=== PATIENT | female | born 1980 | race American Indian/Alaskan Native ===

== ENCOUNTER 2016-10-03 19:14 | Emergency (ER) | payer MEDICAID ==
[2016-10-03 19:34] VITALS: BP 132/76
[2016-10-03 20:48] LABS: Blood Urea Nitrogen 6 mg/dL (7-17); Calcium 9.1 mg/dL (8.4-10.2); Carbon Dioxide 25 mmol/L (22-30); Glucose 98 mg/dL (65-100)
[2016-10-03 20:49] LABS: Chloride 99.1 mmol/L (98-107); Potassium 3.5 mmol/L (3.6-5.0); Sodium 137 mmol/L (137-145)
[2016-10-03 20:52] LABS: Anion Gap 16 mmol/L
[2016-10-03 21:13] LABS: Red Blood Count TNR M/mm3 (3.65-5.03); White Blood Count TNR K/mm3 (4.5-11.0)
[2016-10-03 21:14] LABS: Hematocrit TNR % (30.3-42.9); Hemoglobin TNR gm/dl (10.1-14.3); Mean Corpuscular Volume TNR fl (79-97)
[2016-10-03 21:15] LABS: Mean Corpuscular HGB Conc TNR % (30-34); Mean Corpuscular Hemoglobin TNR pg (28-32); Mean Platelet Volume TNR fl (6-12); Platelet Count TNR K/mm3 (140-440); Red Cell Distribution Width TNR % (13.2-15.2)
[2016-10-03] MEDS ORDERED: DUONEB 0.5 MG-3 MG/3 ML SOLN IH ONE (21:48)
[2016-10-03] MEDS ORDERED: ZITHROMAX PO ONE (21:48)
[2016-10-03] MEDS ORDERED: DELTASONE PO ONE (21:48)
[2016-10-03] MEDS ORDERED: BENADRYL PO ONE (23:26)
[2016-10-03] MEDS ORDERED: MOTRIN PO ONE (23:26)
--- NOTE | 2016-10-04 00:09 | XRay Report ---
FINAL REPORT PROCEDURE: XR CHEST ROUTINE 2V TECHNIQUE: PA and lateral chest radiographs were obtained. CPT 03339 HISTORY: COPD exacerbation COMPARISON: No prior studies are available for comparison. FINDINGS: Heart: Normal. Mediastinum/Vessels: Normal. Lungs/Pleural space: Normal. Bony thorax: No acute osseous abnormality. Other: IMPRESSION: Normal examination.
--- NOTE | 2016-10-04 00:21 | Emergency Department Report ---
ED Female HPI - General Chief complaint: Skin Rash Stated complaint: VAGINAL RASH Time Seen by Provider: 10/03/16 21:50 Source: patient Mode of arrival: Ambulatory Limitations: No Limitations - History of Present Illness Initial comments: 35-year-old female past medical history COPD, smoker presents with complaint of 3-4 days of vaginal irritation. Also states she has been feeling slightly short of breath this week and coughing more than usual with productive cough greenish sputum. Denies any fever chills no nausea no vomiting no abdominal pain. Patient is awake alert and oriented 3 not in acute distress no audible stridor or dyspnea on exam. Her primary complaint is of external vaginal itching. MD Complaint: vaginal discharge Onset/Timin -: days(s) Location: labia Radiation: non-radiating Severity: moderate Quality: other Consistency: constant Improves with: none Worsens with: none Are you Now?: No (itching) Associated Symptoms: vaginal discharge - Related Data Previous Rx's Medication Instructions Recorded Last Taken Type Cyclobenzaprine [Flexeril] 10 mg PO TID PRN #15 tablet 04/27/16 Unknown Rx Ibuprofen [Motrin] 800 mg PO Q8HR PRN #15 tablet 04/27/16 Unknown Rx ALBUTEROL Inhaler [ProAir HFA 2 puff IH QID PRN #1 inhalation 10/04/16 Unknown Rx Inhaler] Azithromycin [Zithromax Z-ROMELIA] 250 mg PO QDAY #6 tablet 10/04/16 Unknown Rx Fluconazole [Diflucan TAB] 150 mg PO ONCE #1 tablet 10/04/16 Unknown Rx Hydrocortisone 1% [Hydrocortisone 1 applicatio TP TID PRN #1 tube 10/04/16 Unknown Rx 1% CREAM] predniSONE [Deltasone] 40 mg PO QDAY #10 tab 10/04/16 Unknown Rx Allergies Allergy/AdvReac Type Severity Reaction Status Date / Time No Known Allergies Allergy Verified 04/27/16 00:54 ED Review of Systems ROS: Stated complaint: VAGINAL RASH Other details as noted in HPI Constitutional: denies: chills, fever Eyes: denies: eye pain, eye discharge, vision change ENT: denies: ear pain, throat pain Respiratory: cough. denies: shortness of breath, wheezing Cardiovascular: denies: chest pain, palpitations Endocrine: no symptoms reported Gastrointestinal: denies: abdominal pain, nausea, diarrhea Genitourinary: as per HPI, discharge (thick whitish vaginal discharge vaginal irritation on labia). denies: urgency, dysuria Musculoskeletal: denies: back pain, joint swelling, arthralgia Skin: denies: rash, lesions Neurological: denies: headache, weakness, paresthesias Psychiatric: denies: anxiety, depression Hematological/Lymphatic: denies: easy bleeding, easy bruising ED Past Medical Hx - Past Medical History Hx COPD: Yes Additional medical history: anemia - Surgical History Additional Surgical History: ankle screws and plate - Social History Smoking Status: Current Every Day Smoker Substance Use Type: Alcohol, Marijuana - Medications Home Medications: Home Medications Medication Instructions Recorded Confirmed Last Taken Type Cyclobenzaprine [Flexeril] 10 mg PO TID PRN #15 tablet 04/27/16 Unknown Rx Ibuprofen [Motrin] 800 mg PO Q8HR PRN #15 tablet 04/27/16 Unknown Rx ALBUTEROL Inhaler [ProAir HFA 2 puff IH QID PRN #1 inhalation 10/04/16 Unknown Rx Inhaler] Azithromycin [Zithromax Z-ROMELIA] 250 mg PO QDAY #6 tablet 10/04/16 Unknown Rx Fluconazole [Diflucan TAB] 150 mg PO ONCE #1 tablet 10/04/16 Unknown Rx Hydrocortisone 1% [Hydrocortisone 1 applicatio TP TID PRN #1 tube 10/04/16 Unknown Rx 1% CREAM] predniSONE [Deltasone] 40 mg PO QDAY #10 tab 10/04/16 Unknown Rx ED Physical Exam - General Limitations: No Limitations General appearance: alert, in no apparent distress - Head Head exam: Present: atraumatic, normocephalic - Eye Eye exam: Present: normal appearance, PERRL, EOMI - ENT ENT exam: Present: mucous membranes moist - Neck Neck exam: Present: normal inspection - Respiratory Respiratory exam: Present: wheezes (slight wheezing lower lung chow). Absent : respiratory distress - Cardiovascular Cardiovascular Exam: Present: regular rate, normal rhythm. Absent: systolic murmur, diastolic murmur, rubs, gallop - GI/Abdominal GI/Abdominal exam: Present: soft, normal bowel sounds - External exam: Present: other (whitish vaginal discharge externally) Speculum exam: Present: vaginal discharge - Extremities Exam Extremities exam: Present: normal inspection, full ROM - Back Exam Back exam: Present: normal inspection - Neurological Exam Neurological exam: Present: alert, oriented X3 - Psychiatric Psychiatric exam: Present: normal affect, normal mood - Skin Skin exam: Present: warm, dry, intact, normal color. Absent: rash ED Course Vital Signs 10/03/16 10/03/16 10/03/16 19:28 22:26 22:38 Temperature 99 F Pulse Rate 107 H Pulse Rate [ 89 92 H Anterior Bilateral Throughout] Respiratory 18 Rate Respiratory 12 12 Rate [Anterior Bilateral Throughout] Blood Pressure 132/76 O2 Sat by Pulse 100 Oximetry ED Medical Decision Making - Lab Data Result diagrams: 10/03/16 20:18 10/03/16 20:18 - Medical Decision Making A/P: Vaginal candidiasis, mild COPD exacerbation 1-metronidazole and fluconazole for BV/vulvovaginal candidiasis 2-albuterol inhaler, prednisone 5 day course, azithromycin for mild COPD exacerbation. Patient fully ambulatory not in any acute respiratory distress oxygen saturation 98% before discharge. Patient states she feels considerably better only after 1 DuoNeb treatment. Chest x-ray within normal limits 3-patient denies any chest pain whatsoever. Stated that she just felt mild congestion. I advised patient on reducing her cigarette smoking 4-patient does not currently have primary medical doctor, I will refer patient to PCP 5- patient allowed me to do an external vaginal exam but stated that the itching was intensive did not want me doing an internal exam. I could see thick , she is white like discharge and labia no other lesions. I will treat patient empirically based on the symptoms and external exam. I was chaperoned by respiratory therapist Abeba. Critical care attestation.: If time is entered above; I have spent that time in minutes in the direct care of this critically ill patient, excluding procedure time. ED Disposition Clinical Impression: COPD exacerbation, Vaginal candidiasis Disposition: DISCHARGED TO HOME OR SELFCARE Is pt being admited?: No Does the pt Need Aspirin: No Condition: Stable Instructions: Vaginal Antibacterials (Vaginal), Chronic Obstructive Pulmonary Disease (ED), Vulvovaginal Candidiasis (ED) Prescriptions: ALBUTEROL Inhaler [ProAir HFA Inhaler] 2 puff IH QID PRN #1 inhalation PRN Reason: Shortness Of Breath Azithromycin [Zithromax Z-ROMELIA] 250 mg PO QDAY #6 tablet Fluconazole [Diflucan TAB] 150 mg PO ONCE #1 tablet Hydrocortisone 1% [Hydrocortisone 1% CREAM] 1 applicatio TP TID PRN #1 tube PRN Reason: Itching predniSONE [Deltasone] 40 mg PO QDAY #10 tab Referrals: PRIMARY CARE, [Primary Care Provider] - 3-5 Days SHARRI STEIN MD [Staff Physician] - 3-5 Days [facility] [Outside] - 3-5 Days [facility] [Provider Group] - 3-5 Days Time of Disposition: 00:26
== END 2016-10-04 00:41 | disposition home or self-care (01) ==
LOC: ED 19:14
DX: J44.1 Chronic obstructive pulmonary disease with (acute) exacerbation (principal); B37.3 Candidiasis of vulva and vagina; F17.200 Nicotine dependence, unspecified, uncomplicated; F12.10 Cannabis abuse, uncomplicated
CPT/HCPCS: 36415; 71020; 80048; 85027; 93005; 93010; 94640; 99284; J7512